=== PATIENT | male | born 1940 | race Caucasian/White ===

== ENCOUNTER 2019-10-30 09:56 | Outpatient (CLI) | payer MEDICARE ==
--- NOTE | 2019-10-30 11:02 | ULT ---
Thyroid ultrasound: 10/30/2019 COMPARISON: None HISTORY: 78-year-old male with a history of hyperparathyroidism. The patient reports a history of rad ioactive iodine treatment 8 years ago TECHNIQUE: Multiplanar grayscale sonographic imaging of the thyroid gland obtained. FINDINGS: The thyroid gland is heterogeneous and the thyroid parenchyma is ill-defined. Thyroid isthm us measures 8 mm in AP dimension. Right lobe measures approximately 1.4 x 4.0 x 2.0 cm and left lobe measures approximately 1.7 x 3.3 x 1.6 cm. 2 ill-defined solid isoechoic nodules are noted within the inferior aspect of the right lobe of the thyroid gland measuring 1.2 x 0.8 x 0.8 cm and 1.3 x 0.8 x 1.3 cm respectively. IMPRESSION: TI-RADS category 3-mildly suspicious. As these nodules do not measure 1.5 cm or greater, no follow-up imaging is suggested.
== END 2019-10-30 09:57 | disposition home or self-care (01) ==
LOC: SCSULT 09:56
PROVIDERS: ATTEND Student in an Organized Health Care Education/Training Program
DX: E21.3 Hyperparathyroidism, unspecified (principal)
CPT/HCPCS: 76536